=== PATIENT | male | born 1970 | race Caucasian/White ===

== ENCOUNTER 2017-11-12 11:44 | Emergency (ER) | payer BC ==
[2017-11-12] MEDS ORDERED: ONDANSETRON 4 MG/2 ML VIAL IVP STA ×2 (11:56→14:23)
[2017-11-12] MEDS ORDERED: SODIUM CHLORIDE 0.9% 1,000 ML IV STA (11:56)
[2017-11-12] MEDS ORDERED: KETOROLAC 30 MG/ML 1 ML VIAL IVP STA (11:56)
--- NOTE | 2017-11-12 11:59 | ED ---
Abdominal Pain HPI - General Chief Complaint: Abdominal Pain Stated Complaint: rt flank pain Hx Kidney stones Time Seen by Provider: 11/12/17 11:51 Source: patient, RN notes reviewed Mode of arrival: wheelchair Limitations: no limitations - History of Present Illness Initial Comments: This is a 47-year-old male presents emergency Department chief complaint of right flank pain. Patient states symptoms started yesterday worsened overnight. Patient states that he's had a history kidney stones this feels slightly different. Patient denies any dysuria, urinary frequency or hematuria. Patient states she has some chronic constipation issues denies any changes in bowel habits. Patient has fever, chills. He does admit to some nausea no vomiting. Denies any prior abdominal surgeries. Patient has not taken any medications prior arrival to help with symptoms. He does admit to ALLERGIES to erythromycin and naproxen. Patient states he is able to take other anti-inflammatories and has had Toradol in the past. - Related Data Home Medications Medication Instructions Recorded Confirmed ALPRAZolam [Xanax] 0.5 mg PO DAILY PRN 11/12/17 11/12/17 Fish Oil/Dha/Epa [Fish Oil 1,200 2 cap PO DAILY 11/12/17 11/12/17 mg Fish Oil] Montelukast [Singulair] 10 mg PO DAILY 11/12/17 11/12/17 Omeprazole [PriLOSEC] 20 mg PO DAILY 11/12/17 11/12/17 Ondansetron [Zofran] 4 mg PO Q8H PRN 11/12/17 11/12/17 Potassium Citrate [Urocit-K] 15 meq PO BID 11/12/17 11/12/17 Tamsulosin HCl [Flomax] 0.4 mg PO DAILY 11/12/17 11/12/17 Previous Rx's Medication Instructions Recorded HYDROcodone/APAP 7.5-325MG [[place] 1 tab PO Q6HR PRN #20 tab 11/12/17 7.5-325] Ibuprofen [Motrin] 600 mg PO Q8HR PRN #30 tab 11/12/17 Ondansetron Odt [Zofran Odt] 4 mg PO Q8HR PRN #10 tab 11/12/17 Tamsulosin [Flomax] 0.4 mg PO DAILY #7 cap 11/12/17 Allergies Allergy/AdvReac Type Severity Reaction Status Date / Time erythromycin base Allergy Unknown Verified 11/12/17 12:12 naproxen Allergy Unknown Verified 11/12/17 12:12 Review of Systems ROS Statement: Those systems with pertinent positive or pertinent negative responses have been documented in the HPI. ROS Other: All systems not noted in ROS Statement are negative. Past Medical History Additional Past Medical History / Comment(s): enlarged prostate History of Any Multi-Drug Resistant Organisms: None Reported Past Surgical History: No Surgical Hx Reported Past Psychological History: No Psychological Hx Reported Smoking Status: Never smoker Past Alcohol Use History: None Reported Past Drug Use History: None Reported General Exam Limitations: no limitations General appearance: alert, in no apparent distress Head exam: Present: atraumatic, normocephalic, normal inspection ENT exam: Present: normal exam, mucous membranes moist Neck exam: Present: normal inspection, full ROM. Absent: tenderness, meningismus, lymphadenopathy Respiratory exam: Present: normal lung sounds bilaterally. Absent: respiratory distress, wheezes, rales, rhonchi, stridor Cardiovascular Exam: Present: regular rate, normal rhythm, normal heart sounds. Absent: systolic murmur, diastolic murmur, rubs, gallop, clicks GI/Abdominal exam: Present: soft, tenderness (Mild right sided right flank region), normal bowel sounds. Absent: distended, guarding, rebound, rigid Back exam: Present: CVA tenderness (R). Absent: CVA tenderness (L) Skin exam: Present: warm, dry, intact, normal color. Absent: rash Course Vital Signs 11/12/17 11:48 Temperature 98.1 F Pulse Rate 54 L Respiratory 20 Rate Blood Pressure 156/86 O2 Sat by Pulse 100 Oximetry Medical Decision Making - Medical Decision Making 47-year-old male presents emergency Department chief complaint of right flank pain. Patient's found to have a 9 millimeter obstructing stone on the right. There is some fat stranding there is no evidence of infection on lab work or urinalysis. Dr humphrey did discuss case with Dr. guerra or who will set up an appointment for the patient tomorrow he will be given Flomax, pain medication and antibiotic denies medication. Return parameters were discussed. - Lab Data Result diagrams: 11/12/17 12:14 11/12/17 12:14 Lab Results 02/11/12/17 11/12/17 Range/Units 12:14 12:14 13:45 WBC 10.1 (3.8-10.6) k/uL RBC 4.76 (4.30-5.90) m/uL Hgb 15.0 (13.0-17.5) gm/dL Hct 44.1 (39.0-53.0) % MCV 92.7 (80.0-100.0) fL MCH 31.6 (25.0-35.0) pg MCHC 34.1 (31.0-37.0) g/dL RDW 12.4 (11.5-15.5) % Plt Count 120 L (150-450) k/uL Neutrophils % 73 % Lymphocytes % 20 % Monocytes % 6 % Eosinophils % 0 % Basophils % 0 % Neutrophils # 7.4 (1.3-7.7) k/uL Lymphocytes # 2.0 (1.0-4.8) k/uL Monocytes # 0.6 (0-1.0) k/uL Eosinophils # 0.1 (0-0.7) k/uL Basophils # 0.0 (0-0.2) k/uL Sodium 140 (137-145) mmol/L Potassium 4.3 (3.5-5.1) mmol/L Chloride 106 (98-107) mmol/L Carbon Dioxide 20 L (22-30) mmol/L Anion Gap 14 mmol/L BUN 22 H (9-20) mg/dL Creatinine 0.91 (0.66-1.25) mg/dL Est GFR (MDRD) Af Amer >60 (>60 ml/min/1.73 sqM) Est GFR (MDRD) Non-Af >60 (>60 ml/min/1.73 sqM) Glucose 125 H (74-99) mg/dL Calcium 10.3 H (8.4-10.2) mg/dL Total Bilirubin 0.9 (0.2-1.3) mg/dL AST 41 (17-59) U/L ALT 24 (21-72) U/L Alkaline Phosphatase 78 (38-126) U/L Total Protein 7.5 (6.3-8.2) g/dL Albumin 4.9 (3.5-5.0) g/dL Amylase 80 (30-110) U/L Lipase 152 (23-300) U/L Urine Color Yellow Urine Appearance Clear (Clear) Urine pH 8.0 (5.0-8.0) Ur Specific [place] 1.011 (1.001-1.035) Urine Protein 1+ H (Negative) Urine Glucose (UA) Negative (Negative) Urine Ketones 1+ H (Negative) Urine Blood Moderate H (Negative) Urine Nitrite Negative (Negative) Urine Bilirubin Negative (Negative) Urine Urobilinogen <2.0 (<2.0) mg/dL Ur Leukocyte Esterase Negative (Negative) Urine RBC >182 H (0-5) /hpf Urine WBC 4 (0-5) /hpf Urine Mucus Rare H (None) /hpf Disposition Clinical Impression: Ureteral calculi, Hydronephrosis with renal and ureteral calculous obstruction Disposition: HOME SELF-CARE Condition: Stable Instructions: Kidney Stones (ED) Additional Instructions: Please follow-up urologist tomorrow at scheduled appointment. Please return to the Emergency Department if symptoms worsen or any other concerns. Prescriptions: HYDROcodone/APAP 7.5-325MG [[place] 7.5-325] 1 tab PO Q6HR PRN #20 tab PRN Reason: Pain Ibuprofen [Motrin] 600 mg PO Q8HR PRN #30 tab PRN Reason: Pain Ondansetron Odt [Zofran Odt] 4 mg PO Q8HR PRN #10 tab PRN Reason: Nausea Tamsulosin [Flomax] 0.4 mg PO DAILY #7 cap Referrals: None,Stated [REFERRING] - 1-2 days Lázaro Aly MD [STAFF PHYSICIAN] - 1-2 days Time of Disposition: 15:19
[2017-11-12 12:26] LABS: Basophils % (A) 0 %; Eosinophils # (A) 0.1 k/uL (0-0.7); Eosinophils % (A) 0 %; HCT 44.1 % (39.0-53.0); Lymphocytes % (A) 20 %; MCH 31.6 pg (25.0-35.0); MCHC 34.1 g/dL (31.0-37.0); MCV 92.7 fL (80.0-100.0); Mean Platelet Volume 10.2; Monocytes # (A) 0.6 k/uL (0-1.0); Monocytes % (A) 6 %; Neutrophils # (A) 7.4 k/uL (1.3-7.7); Neutrophils % (A) 73 %; Platelet Count 120 k/uL (150-450); RBC 4.76 m/uL (4.30-5.90); RDW 12.4 % (11.5-15.5); WBC 10.1 k/uL (3.8-10.6)
[2017-11-12 12:43] LABS: ALT 24 U/L (21-72); AST 41 U/L (17-59); Albumin 4.9 g/dL (3.5-5.0); Alkaline Phosphatase 78 U/L (38-126); Amylase 80 U/L (30-110); Anion Gap 14 mmol/L; Blood Urea Nitrogen 22 mg/dL (9-20); Calcium 10.3 mg/dL (8.4-10.2); Carbon Dioxide 20 mmol/L (22-30); Chloride 106 mmol/L (98-107); Glucose 125 mg/dL (74-99); Lipase 152 U/L (23-300); Sodium 140 mmol/L (137-145); Total Bilirubin 0.9 mg/dL (0.2-1.3); Total Protein 7.5 g/dL (6.3-8.2)
[2017-11-12 12:47] LABS: Potassium 4.3 mmol/L (3.5-5.1)
--- NOTE | 2017-11-12 13:22 | XR ---
Abdomen HISTORY: Pain Frontal view of the abdomen on 2 images Lung bases are clear. There is no bowel obstruction or pneumoperitoneum. Bone mineralization is maint ained. Calcification superimposed over the lower pole left kidney is suspected measuring approximatel y 4 mm. Overlying bowel gas may obscure detail. Questionable calcification at the level of the right sacral ala measuring 7 mm. IMPRESSION: Difficult to exclude nephrolithiasis. There may be a distal right ureteral calculus.
[2017-11-12 14:17] LABS: Appearance,Urine Clear (Clear); Bilirubin,Urine Negative (Negative); Blood,Urine Moderate (Negative); Color,Urine Yellow; Glucose,Urine (UA) Negative (Negative); Ketones,Urine 1+ (Negative); Leukocyte Esterase,Urine Negative (Negative); Mucus,Urine Rare /hpf; Protein,Urine 1+ (Negative); RBC,Urine >182 /hpf (0-5); Specific Gravity,Urine 1.011 (1.001-1.035); Urobilinogen,Urine <2.0 mg/dL (<2.0); WBC,Urine 4 /hpf (0-5)
[2017-11-12] MEDS ORDERED: MORPHINE SULFATE 4 MG/ML SYRINGE IVP STA ×2 (14:23→15:24)
--- NOTE | 2017-11-12 14:53 | CT ---
EXAMINATION TYPE: CT abdomen pelvis wo con DATE OF EXAM: 11/12/2017 COMPARISON: NONE HISTORY: Right flank pain x 2 days. Painful urination and hematuria. CT DLP: 404.3 mGycm Automated exposure control for dose reduction was used. TECHNIQUE: Helical acquisition of images was performed from the lung bases through the pelvis. FINDINGS: LUNG BASES: No significant abnormality is appreciated. LIVER/GB: Liver is unremarkable. No radiopaque calculi are seen within the gallbladder. PANCREAS: Unenhanced pancreas is of normal morphology without ductal dilatation. SPLEEN: No splenomegaly. ADRENALS: No enlargement or nodularity. KIDNEYS: Left kidney demonstrates a 2 mm mid pole nonobstructing calculus and 4 mm lower pole nonobst ructing calculus. There is mild right-sided perinephric fat stranding, moderate hydroureteronephrosis, and periureteral fat stranding secondary to an obstructing 9 mm calculus at the right ureterovesicular junction. Maik tional punctate 2 mm right midpole renal calculus is seen. Urinary bladder is partially decompressed and suboptimally evaluated. FREE AIR: No free air is visualized ADENOPATHY: No greater than 1 cm short axis lymph nodes are seen within the abdomen or pelvis. REPRODUCTIVE ORGANS: Prostate gland is mildly heterogenous and nonenlarged. OSSEOUS STRUCTURES: Minimal degenerative changes of the visualized thoracolumbar spine are noted. BOWEL: Few sigmoid diverticula are noted without pericolonic fat stranding. Appendix is air-filled a nd within normal limits. No evidence of dilated bowel to suggest obstruction. IMPRESSION: 9 MM CALCULUS AT THE RIGHT URETEROVESICULAR JUNCTION CREATING MODERATE RIGHT HYDROURETERONEPHROSIS, R IGHT PERINEPHRIC FAT STRANDING, AND RIGHT PERIURETERAL FAT STRANDING. CORRELATE WITH URINALYSIS TO EX CLUDE SUPERIMPOSED INFECTION.
[2017-11-12 15:33] VITALS: BP 123/84; PULSE 52; RESP 16; TEMP 97.9
== END 2017-11-12 15:45 | disposition home or self-care (01) ==
LOC: EC 11:44
DX: N13.2 Hydronephrosis with renal and ureteral calculous obstruction (principal); K59.09 Other constipation; N40.0 Benign prostatic hyperplasia without lower urinary tract symptoms; Z79.899 Other long term (current) drug therapy; Z88.1 Allergy status to other antibiotic agents; Z88.6 Allergy status to analgesic agent
CPT/HCPCS: 36415; 80053; 82150; 83690; 85025; 81001; 74018; 74176; 99284; 96374; 96375 ×2; 96376 ×2; 96361; J2270; J2405; J1885

== ENCOUNTER 2019-03-18 15:19 | Emergency (ER) | payer BC ==
[2019-03-18 15:25] VITALS: BP 111/73; PULSE 60; RESP 16; TEMP 98.8
--- NOTE | 2019-03-18 15:53 | ED ---
Upper Extremity HPI - General Chief Complaint: Extremity Injury, Upper Stated Complaint: Arm pain Time Seen by Provider: 03/18/19 15:32 Source: patient Mode of arrival: ambulatory Limitations: no limitations - History of Present Illness Initial Comments: Patient is a 40-year-old male presents emergency Department with complaints of pain in his left arm 4 days. Patient states he was trying to move a plow and was using a pulling motion with his left arm when he felt a sharp pain in his left elbow area. Patient states he's been unable to extend his elbow since that injury and also noticed some bruising along the left elbow into the left forearm. Patient denies previous injuries to the left arm. Patient states he is right-hand dominant. No other complaints at this time. - Related Data Home Medications Medication Instructions Recorded Confirmed ALPRAZolam [Xanax] 0.5 mg PO DAILY 11/12/17 03/18/19 Omeprazole [PriLOSEC] 20 mg PO DAILY 11/12/17 03/18/19 Potassium Citrate [Urocit-K] 15 meq PO BID 11/12/17 03/18/19 Allergies Allergy/AdvReac Type Severity Reaction Status Date / Time erythromycin base Allergy Unknown Verified 03/18/19 15:51 naproxen Allergy Unknown Verified 03/18/19 15:51 Review of Systems ROS Statement: Those systems with pertinent positive or pertinent negative responses have been documented in the HPI. ROS Other: All systems not noted in ROS Statement are negative. Past Medical History Additional Past Medical History / Comment(s): enlarged prostate History of Any Multi-Drug Resistant Organisms: None Reported Past Surgical History: No Surgical Hx Reported Past Psychological History: No Psychological Hx Reported Smoking Status: Never smoker Past Alcohol Use History: None Reported Past Drug Use History: None Reported General Exam - General Exam Comments Initial Comments: GENERAL: Well-appearing, well-nourished and in no acute distress. HEAD: Atraumatic, normocephalic. EYES: Pupils equal round and reactive to light, extraocular movements intact, sclera anicteric, conjunctiva are normal. ENT: TMs normal, nares patent, oropharynx clear without exudates. Moist mucous membranes. NECK: Normal range of motion, supple without lymphadenopathy or JVD. LUNGS: Breath sounds clear to auscultation bilaterally and equal. No wheezes rales or rhonchi. HEART: Regular rate and rhythm without murmurs, rubs or gallops. ABDOMEN: Soft, nontender, normoactive bowel sounds. No guarding, no rebound. No masses appreciated. : Deferred EXTREMITIES: Pain with palpation to the left distal biceps, medial epicondyles and into brachial radialis. Patient has full elbow flexion and limited elbow extension secondary to pain. Patient has bruising along the medial elbow and the medial forearm. Neurovascular intact. Pain with resisted elbow flexion. NEUROLOGICAL: Cranial nerves II through XII grossly intact. Normal speech, normal gait. PSYCH: Normal mood, normal affect. SKIN: Warm, Dry, normal turgor, no rashes or lesions noted. Limitations: no limitations Course Vital Signs 03/18/19 03/18/19 15:22 15:25 Temperature 98.8 F Pulse Rate 60 Respiratory 16 Rate Blood Pressure 111/73 O2 Sat by Pulse 97 Oximetry Medical Decision Making - Medical Decision Making Patient is a 40-year-old male who presents to [facility] with complaints of left elbow/arm pain 4 days after he was trying to pull up following his cried just felt a sharp pain. On exam patient has pain in the distal bicep and brachial radialis area. Patient also has bruising of the area. X-ray of the left elbow and humerus show no acute fractures or avulsions. There is concern for a bicep tendon/muscle tear. Patient will be placed in a sling and will follow up with orthopedics on Friday. Patient is a in agreement with this plan. Return parameters were discussed. Case was discussed with Dr. Mcneal. Disposition Clinical Impression: Biceps muscle tear, Biceps rupture, distal Disposition: HOME SELF-CARE Condition: Stable Instructions (If sedation given, give patient instructions): Tendon Rupture (ED) Additional Instructions: Please return to the Emergency Department if symptoms worsen or any other concerns. Follow-up with orthopedics on Friday. Is patient prescribed a controlled substance at d/c from ED?: No Referrals: Nonstaff,Physician [REFERRING] - 1-2 days Harlan Monroe DO [Doctor of Osteopathic Medicine] - 1-2 days
--- NOTE | 2019-03-18 16:16 | XR ---
EXAMINATION TYPE: XR humerus LT DATE OF EXAM: 03/18/2019 COMPARISON: NONE HISTORY: Pain TECHNIQUE: 2 views FINDINGS: There is some spurring at the glenohumeral joint. Elbow joint appears intact. I see no frac ture nor dislocation. 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 No fracture seen.
--- NOTE | 2019-03-18 16:17 | XR ---
EXAMINATION TYPE: XR elbow complete LT DATE OF EXAM: 03/18/2019 COMPARISON: NONE HISTORY: Arm pain TECHNIQUE: 3 views FINDINGS: There is some spurring on the olecranon process of the ulna. There is spurring on the coron oid process of the ulna. I see no fracture nor dislocation. There is no sign of elbow joint effusion. Joint spaces are fairly normal. IMPRESSION: Degenerative hypertrophic spurring. No fracture.
== END 2019-03-18 16:36 | disposition home or self-care (01) ==
LOC: EC 15:19
DX: S46.212A Strain of muscle, fascia and tendon of other parts of biceps, left arm, initial encounter (principal); S50.12XA Contusion of left forearm, initial encounter; Z79.899 Other long term (current) drug therapy; Z88.1 Allergy status to other antibiotic agents; Z88.6 Allergy status to analgesic agent; X50.9XXA Other and unspecified overexertion or strenuous movements or postures, initial encounter; Y93.89 Activity, other specified
CPT/HCPCS: 99283

== ENCOUNTER 2021-02-05 07:30 | Emergency (ER) | payer BC ==
[2021-02-05 07:41] VITALS: RESP 18
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
--- NOTE | 2021-02-05 08:11 | XR ---
EXAMINATION TYPE: XR hand complete RT DATE OF EXAM: 02/05/2021 CLINICAL HISTORY: Injury with pain worse in the finger. TECHNIQUE: Frontal, lateral and oblique images of the right hand are obtained. COMPARISON: None. FINDINGS: There is no acute fracture/dislocation evident in the right hand. Mild to moderate narrowi ng throughout the PIP and DIP joints of the phalanges. The overlying soft tissue appears unremarkabl e. IMPRESSION: There is no acute fracture or dislocation in the right hand.
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
[2021-02-05] MEDS ORDERED: BACITRACIN OINT 1 EACH PACKET TOPICAL ONE (08:58)
[2021-02-05 09:00] VITALS: BP 113/82; PULSE 56; TEMP 97.6
== END 2021-02-05 09:00 | disposition home or self-care (01) ==
LOC: EC 07:30
DX: S06.0X0A Concussion without loss of consciousness, initial encounter (principal); S05.12XA Contusion of eyeball and orbital tissues, left eye, initial encounter; F17.200 Nicotine dependence, unspecified, uncomplicated; V19.9XXA Pedal cyclist (driver) (passenger) injured in unspecified traffic accident, initial encounter
CPT/HCPCS: 70450; 70486; 72125; 99284

== ENCOUNTER 2022-04-16 20:55 | Emergency (ER) | payer BC ==
[2022-04-16 21:07] VITALS: RESP 18; TEMP 97.3
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
[2022-04-16] MEDS ORDERED: MORPHINE SULFATE 4 MG/ML SYRINGE IV STA (22:01)
[2022-04-16 22:17] LABS: Basophils % (A) 0 %; Eosinophils # (A) 0.1 k/uL (0-0.7); Eosinophils % (A) 2 %; HCT 41.7 % (39.0-53.0); HGB 14.3 gm/dL (13.0-17.5); Lymphocytes % (A) 31 %; MCH 33.8 pg (25.0-35.0); MCHC 34.4 g/dL (31.0-37.0); MCV 98.4 fL (80.0-100.0); Monocytes # (A) 0.3 k/uL (0-1.0); Monocytes % (A) 5 %; Neutrophils # (A) 3.6 k/uL (1.3-7.7); Neutrophils % (A) 58 %; Platelet Count 156 k/uL (150-450); RBC 4.24 m/uL (4.30-5.90); RDW 12.5 % (11.5-15.5); WBC 6.3 k/uL (3.8-10.6)
[2022-04-16 22:26] LABS: ALT 18 U/L (4-49); AST 25 U/L (17-59); African American GFR (CKD) >90 (>60 ml/min/1.73 sqM); Alkaline Phosphatase 73 U/L (38-126); Anion Gap 3 mmol/L; Blood Urea Nitrogen 15 mg/dL (9-20); Calcium 9.1 mg/dL (8.4-10.2); Carbon Dioxide 25 mmol/L (22-30); Chloride 108 mmol/L (98-107); Glucose 103 mg/dL (74-99); Non-African American GFR(CKD) >90 (>60 ml/min/1.73 sqM); Potassium 4.1 mmol/L (3.5-5.1); Sodium 136 mmol/L (137-145); Total Bilirubin 0.3 mg/dL (0.2-1.3); Total Protein 5.9 g/dL (6.3-8.2)
--- NOTE | 2022-04-16 22:43 | CT ---
EXAMINATION TYPE: CT abdomen pelvis w con DATE OF EXAM: 04/16/2022 COMPARISON: 11/12/2017 HISTORY: pain CT DLP: 1148.6 mGycm Automated exposure control for dose reduction was used. CONTRAST: Performed with IV Contrast, patient injected with 100 mL of Isovue 300. There are some mild atelectasis at the posterior lung bases. Heart size is normal. No pericardial eff usion. There is small right pleural effusion. Liver and spleen are intact. Stomach is intact. There is no evidence of pancreatic mass. Gallbladder appears normal. The bile ducts are not dilated. There is no adrenal mass. Kidneys show satisfactory contrast opacification. There is no hydronephrosi s. There is 4 mm calculus lower pole left kidney. There is 2 mm calculus interpolar left kidney. Maria Del Rosario yed images show normal renal excretion. The ureters are not dilated. There is no retroperitoneal miko opathy. The bladder distends smoothly. No inguinal hernia. No free fluid in the pelvis. No pelvic mas s. There are some sigmoid diverticula. No diverticulitis. Appendix is posterior and appears normal. There is no mesenteric edema. There is no ascites or free air. No bowel obstruction. The lumbar vertebrae have normal alignment. There is narrowing at L5-S1 disc space with spurring. No compression fracture. The bony pelvis is intact. Hip joints are intact. Impression There is some mild atelectasis at the lung bases and small right pleural effusion which are new jhonathan red to old exam. There is a small nonobstructing left renal calculus without change. There is clearing of the obstruct ing calculus distal right ureter compared to old exam. Normal appendix. No acute abnormality in the abdomen and pelvis. No evidence of traumatic injury in t he abdomen pelvis.
[2022-04-17 00:08] VITALS: BP 119/81; PULSE 71
== END 2022-04-17 00:08 | disposition home or self-care (01) ==
LOC: EC 20:55
DX: S29.9XXA Unspecified injury of thorax, initial encounter (principal); J90 Pleural effusion, not elsewhere classified; F17.200 Nicotine dependence, unspecified, uncomplicated; Z88.1 Allergy status to other antibiotic agents; V89.2XXA Person injured in unspecified motor-vehicle accident, traffic, initial encounter
CPT/HCPCS: 93005; 80053; 84484; 85025; 74177; 99284; 96374; J2270; Q9967

== ENCOUNTER 2025-03-23 17:02 | Emergency (ER) | payer BC ==
[2025-03-23 17:56] LABS: Bilirubin,Urine Negative (Negative); Blood,Urine Large (Negative); Budding Yeast,Urine Occasional /hpf; Color,Urine Light Yellow; Glucose,Urine (UA) Negative (Negative); Ketones,Urine 1+ (Negative); Leukocyte Esterase,Urine Negative (Negative); Mucus,Urine Rare /hpf; Nitrite,Urine Negative (Negative); PH, Urine 6.0 (5.0-8.0); Protein,Urine 1+ (Negative); RBC,Urine >182 /hpf (0-5); Specific Gravity,Urine 1.027 (1.001-1.035); Urobilinogen,Urine <2.0 mg/dL (<2.0); WBC,Urine 5 /hpf (0-5)
[2025-03-23 18:37] LABS: Basophils # (A) 0.02 10*3/uL (0.00-0.10); Basophils % (A) 0.2 %; Eosinophils # (A) 0.08 10*3/uL (0.04-0.35); Eosinophils % (A) 0.7 %; HCT 41.9 % (39.6-50.0); HGB 15.1 g/dL (13.0-17.0); Lymphocytes # (A) 2.30 10*3/uL (0.90-5.00); Lymphocytes % (A) 20.5 %; MCH 33.9 pg (27.0-32.0); MCHC 36.0 g/dL (32.0-37.0); MCV 93.9 fL (80.0-97.0); Monocytes # (A) 0.92 10*3/uL (0.20-1.00); Monocytes % (A) 8.2 %; Neutrophils # (A) 7.82 10*3/uL (1.80-7.70); Neutrophils % (A) 69.9 %; Platelet Count 162 10*3/uL (140-440); RBC 4.46 10*6/uL (4.40-5.60); RDW 12.0 % (11.5-14.5); WBC 11.20 10*3/uL (4.50-10.00)
[2025-03-23 18:40] VITALS: TEMP 98.4
--- NOTE | 2025-03-23 18:46 | ED ---
General Adult HPI - General Chief complaint: Abdominal Pain Stated complaint: abdominal pain Time Seen by Provider: 03/23/25 17:18 Source: patient, RN notes reviewed Mode of arrival: ambulatory Limitations: no limitations - History of Present Illness Initial comments: 54-year-old male presenting to the emergency room with complaints of left flank pain with ration to the right of the abdomen. Patient states that Friday through Friday evening that he was having back pain however this morning the pain worsened and radiates into the front his abdomen. He states that it feels similar to when he had a kidney stone in the past. He states that he has had mild dysuria over the past day. He endorses he had nausea and vomiting with the pain. He denies hematuria, fevers, chills. Denies previous surgeries due to kidney stones. - Related Data Home Medications Medication Instructions Recorded Confirmed ALPRAZolam [Xanax] 0.5 mg PO DAILY 11/12/17 04/16/22 Omeprazole [PriLOSEC] 20 mg PO DAILY 11/12/17 04/16/22 Potassium Citrate [Urocit-K] 15 meq PO DAILY 11/12/17 04/16/22 Montelukast Sodium [Singulair] 10 mg PO DAILY 04/16/22 04/16/22 Tamsulosin HCl [Flomax] 0.4 mg PO DAILY 04/16/22 04/16/22 Previous Rx's Medication Instructions Recorded HYDROcodone/APAP 5-325MG [[place] 1 tab PO Q4HR PRN 3 Days #18 tab 04/16/22 5-325] HYDROcodone/APAP 7.5-325MG [[place] 1 tab PO Q6HR PRN 3 Days #12 tab 03/23/25 7.5-325] Ondansetron Odt [Zofran Odt] 4 mg PO Q8HR PRN #10 tab 03/23/25 Allergies Allergy/AdvReac Type Severity Reaction Status Date / Time erythromycin base Allergy Unknown Verified 04/16/22 23:01 naproxen Allergy Unknown Verified 04/16/22 23:01 Review of Systems ROS Statement: Those systems with pertinent positive or pertinent negative responses have been documented in the HPI. ROS Other: All systems not noted in ROS Statement are negative. Past Medical History Additional Past Medical History / Comment(s): enlarged prostate. kidney stones History of Any Multi-Drug Resistant Organisms: None Reported Past Surgical History: No Surgical Hx Reported Additional Past Surgical History / Comment(s): Right bicep repair Past Psychological History: No Psychological Hx Reported Smoking Status: Current every day smoker Past Alcohol Use History: Occasional Past Drug Use History: Marijuana General Exam Limitations: no limitations Neck exam: Present: normal inspection. Absent: tenderness, meningismus, lymphadenopathy Respiratory exam: Present: normal lung sounds bilaterally. Absent: respiratory distress, wheezes, rales, rhonchi, stridor Cardiovascular Exam: Present: regular rate, normal rhythm, normal heart sounds. Absent: systolic murmur, diastolic murmur, rubs, gallop, clicks GI/Abdominal exam: Present: soft, tenderness (left lower), normal bowel sounds. Absent: distended, guarding, rebound, rigid Extremities exam: Present: normal inspection, full ROM, normal capillary refill. Absent: tenderness, pedal edema, joint swelling, calf tenderness Back exam: Present: normal inspection, CVA tenderness (L). Absent: CVA tenderness (R) Course Vital Signs 03/23/25 03/23/25 03/23/25 17:25 18:38 20:25 Temperature 98.5 F 98.4 F 98.4 F Pulse Rate 64 85 88 Respiratory 16 20 19 Rate Blood Pressure 150/91 109/86 134/90 O2 Sat by Pulse 98 99 98 Oximetry Medical Decision Making - Medical Decision Making Was pt. sent in by a medical professional or institution ([facility] Mcnally, DELI WORKER, urgent care, hospital, or custodial...) When possible be specific @ -No Did you speak to anyone other than the patient for history (EMS, parent, family, police, friend...)? What history was obtained from this source @ -No Did you review nursing and triage notes (agree or disagree)? Why? @ -I reviewed and agree with nursing and triage notes Were old charts reviewed (outside hosp., previous admission, EMS record, old EKG, old radiological studies, urgent care reports/EKG's, custodial records)? Report findings @ -No old charts were reviewed Differential Diagnosis (chest pain, altered mental status, abdominal pain women, abdominal pain men, vaginal bleeding, weakness, fever, dyspnea, syncope, headache, dizziness, GI bleed, back pain, seizure, CVA, palpatations, mental health, musculoskeletal)? @ -Differential Abdominal Pain Men: Appendicitis, cholecystitis, diverticulosis, ischemic bowel, pancreatitis, hepatitis, UTI, gastroenteritis, AAA, incarcerated hernia, bowel obstruction, constipation, inflammatory bowel, hepatitis, peptic ulcer disease, splenic infarction, perforated viscus, testicular torsion, this is not meant to be an all-inclusive list EKG interpreted by me (3pts min.). @ -None X-rays interpreted by me (1pt min.). @ -None done CT interpreted by me (1pt min.). @ -CT imaging of the abdomen and pelvis without IV contrast reveals a mild left hydronephrosis secondary to an obstructing 5 mm calculus at the UVJ with additional nonobstructing left renal calculi U/S interpreted by me (1pt. min.). @ -None done What testing was considered but not performed or refused? (CT, X-rays, U/S, l abs)? Why? @ -None What meds were considered but not given or refused? Why? @ -None Did you discuss the management of the patient with other professionals (professionals i.e. , PA, DELI WORKER, lab, RT, psych nurse, community mental health social worker, clinical courier, teacher, unclaimed property officer, pillowcase maker)? Give summary @ -No Was smoking cessation discussed for >3mins.? @ -No Was critical care preformed (if so, how long)? @ -No Were there social determinants of health that impacted care today? How? (Homelessness, low income, unemployed, alcoholism, drug addiction, transportation, low edu. Level, literacy, decrease access to med. care, senior living, rehab)? @ -No Was there de-escalation of care discussed even if they declined (Discuss DNR or withdrawal of care, Hospice)? DNR status @ -No What co-morbidities impacted this encounter? (DM, HTN, Smoking, COPD, CAD, Cancer, CVA, ARF, Chemo, Hep., AIDS, mental health diagnosis, sleep apnea, morbid obesity)? @ -None Was patient admitted / discharged? Hospital course, mention meds given and route, prescriptions, significant lab abnormalities, going to OR and other pertinent info. @ -Discharge. 54-year-old male presenting to the ER with complaints of left flank pain with ration to the front of the abdomen. Patient is provided with Dilaudid, fluids and Zofran due to CVA tenderness on examination patient is in mild distress due to pain. Urine reveals blood with no signs of infection. CBC and CMP is unremarkable. CT reveals a 5 mm stone with a left hydronephrosis at the UVJ. Patient provided with starter pack of Tylenol 3 and Zofran addition outpatient prescription for [place] and Zofran. Patient states that he takes Flomax daily. Return parameters discussed. Case discussed with my attending Dr. Ma. Undiagnosed new problem with uncertain prognosis? @ -No Drug Therapy requiring intensive monitoring for toxicity (Heparin, Nitro, Insulin, Cardizem)? @ -No Were any procedures done? @ -No Diagnosis/symptom? @ -kidney stone Acute, or Chronic, or Acute on Chronic? @ -Acute Uncomplicated (without systemic symptoms) or Complicated (systemic symptoms)? @ -Uncomplicated Side effects of treatment? @ -No Exacerbation, Progression, or Severe Exacerbation? @ -No Poses a threat to life or bodily function? How? (Chest pain, [place], SD, pneumonia, PE, COPD, DKA, ARF, appy, cholecystitis, CVA, Diverticulitis, Homicidal, Suicidal, threat to staff... and all critical care pts) @ -No - Lab Data Result diagrams: 03/23/25 18:29 03/23/25 18:29 Lab Results 03/23/25 03/23/25 03/23/25 Range/Units 17:29 18:29 18:29 WBC 11.20 H (4.50-10.00) 10*3/uL RBC 4.46 (4.40-5.60) 10*6/uL Hgb 15.1 (13.0-17.0) g/dL Hct 41.9 (39.6-50.0) % MCV 93.9 (80.0-97.0) fL MCH 33.9 H (27.0-32.0) pg MCHC 36.0 (32.0-37.0) g/dL Plt Count 162 (140-440) 10*3/uL MPV 10.5 (9.5-12.2) fL Immature Gran % (Auto) 0.5 % Neutrophils % 69.9 % Lymphocytes % 20.5 % Monocytes % 8.2 % Eosinophils % 0.7 % Basophils % 0.2 % Immature Gran # 0.06 H (0.00-0.04) 10*3/uL Neutrophils # 7.82 H (1.80-7.70) 10*3/uL Lymphocytes # 2.30 (0.90-5.00) 10*3/uL Monocytes # 0.92 (0.20-1.00) 10*3/uL Eosinophils # 0.08 (0.04-0.35) 10*3/uL Basophils # 0.02 (0.00-0.10) 10*3/uL Sodium 137 (137-145) mmol/L Potassium 4.3 (3.5-5.1) mmol/L Chloride 104 (98-107) mmol/L Carbon Dioxide 20 L (22-30) mmol/L Anion Gap 13 mmol/L BUN 26 H (9-20) mg/dL Creatinine 1.05 (0.66-1.25) mg/dL Est GFR (CKD-EPI)AfAm >90 (>60 ml/min/1.73 sqM) Est GFR (CKD-EPI)NonAf 81 (>60 ml/min/1.73 sqM) Glucose 91 (74-99) mg/dL Calcium 10.3 H (8.4-10.2) mg/dL Total Bilirubin 1.1 (0.2-1.3) mg/dL AST 40 (17-59) U/L ALT 40 (4-49) U/L Alkaline Phosphatase 76 (38-126) U/L Total Protein 7.1 (6.3-8.2) g/dL Albumin 4.9 (3.5-5.0) g/dL Urine Color Light Yellow Urine Appearance Clear (Clear) Urine pH 6.0 (5.0-8.0) Ur Specific [place] 1.027 (1.001-1.035) Urine Protein 1+ H (Negative) Urine Glucose (UA) Negative (Negative) Urine Ketones 1+ H (Negative) Urine Blood Large H (Negative) Urine Nitrite Negative (Negative) Urine Bilirubin Negative (Negative) Urine Urobilinogen <2.0 (<2.0) mg/dL Ur Leukocyte Esterase Negative (Negative) Urine RBC >182 H (0-5) /hpf Urine WBC 5 (0-5) /hpf Urine Mucus Rare H (None) /hpf Urine Yeast (Budding) Occasional H (None) /hpf Disposition Clinical Impression: Kidney stone on left side Disposition: HOME SELF-CARE Condition: Good Instructions (If sedation given, give patient instructions): Kidney Stones (ED) Additional Instructions: Please return to the Emergency Department if symptoms worsen or any other concerns. Prescriptions: HYDROcodone/APAP 7.5-325MG [[place] 7.5-325] 1 tab PO Q6HR PRN 3 Days #12 tab PRN Reason: Severe Pain (Scale 7 To 10) Ondansetron Odt [Zofran Odt] 4 mg PO Q8HR PRN #10 tab PRN Reason: Nausea Is patient prescribed a controlled substance at d/c from ED?: Yes When asked, does pt state using other controlled substances?: No If prescribed controlled substance>3 days was MAPS reviewed?: Prescribed <3 Days If Rx opioid, was Start Talking consent form obtained?: Yes Referrals: Manfred Lopez DO [Primary Care Provider] - 1-2 days Time of Disposition: 19:51
[2025-03-23] MEDS: ONDANSETRON 4 MG/2 ML VIAL IVP STA (18:50)
[2025-03-23] MEDS: HYDROmorphone 1 MG/ML 1 ML SYRINGE IVP STA (18:50)
[2025-03-23 18:51] LABS: ALT 40 U/L (4-49); AST 40 U/L (17-59); African American GFR (CKD) >90 (>60 ml/min/1.73 sqM); Albumin 4.9 g/dL (3.5-5.0); Alkaline Phosphatase 76 U/L (38-126); Anion Gap 13 mmol/L; Blood Urea Nitrogen 26 mg/dL (9-20); Calcium 10.3 mg/dL (8.4-10.2); Carbon Dioxide 20 mmol/L (22-30); Chloride 104 mmol/L (98-107); Glucose 91 mg/dL (74-99); Non-African American GFR(CKD) 81 (>60 ml/min/1.73 sqM); Potassium 4.3 mmol/L (3.5-5.1); Sodium 137 mmol/L (137-145); Total Protein 7.1 g/dL (6.3-8.2)
[2025-03-23] MEDS: SODIUM CHLORIDE 0.9% 1,000 ML IV ONE (18:51)
--- NOTE | 2025-03-23 18:52 | CT ---
EXAMINATION TYPE: CT abdomen pelvis wo con DATE OF EXAM: 03/23/2025 6:12 PM COMPARISON: CT abdomen pelvis most recent from 04/16/2022. CLINICAL INDICATION: Male, 54 years old with history of left flank opain kidney stone hx; lt flank pa in TECHNIQUE: Axial CT abdomen pelvis wo con;Sagittal and coronal reformats were created on a separate workstation. Contrast used: mL of , (none if empty) Oral contrast used: without Oral Contrast (none if empty) CT DLP: 640.6 mGycm, Automated exposure control for dose reduction was used. FINDINGS: LOWER CHEST: Unremarkable ABDOMEN LIVER: Diffusely hypoattenuating parenchyma. GALLBLADDER AND BILE DUCTS: Unremarkable. PANCREAS: Unremarkable. SPLEEN: Unremarkable. ADRENAL GLANDS: Unremarkable. KIDNEYS AND URETERS: Mild left hydronephrosis secondary obstructing 5 mm calculus at the ureterovesic ular junction. Additional nonobstructing left renal calculi measuring up to 3 mm. No right renal swapnil culi. PELVIS BLADDER: No evidence for wall thickening or mass given limitations of exam. REPRODUCTIVE: Unremarkable. ABDOMEN & PELVIS STOMACH AND BOWEL: No evidence of bowel obstruction. Appendix is normal. PERITONEUM/RETROPERITONEUM: No evidence of pneumoperitoneum or free fluid. VASCULATURE: No evidence of aortic aneurysm. MUSCULOSKELETAL: No acute osseous abnormalities. Mild disc degeneration changes are present throughou t the thoracolumbar spine. LYMPH NODES: No gross evidence for lymphadenopathy. SOFT TISSUE/ABDOMINAL WALL: Unremarkable IMPRESSION: 1. Mild left hydronephrosis secondary obstructing 5 mm calculus at the ureterovesicular junction. A dditional nonobstructing left renal calculi. 2. Colonic diverticulosis. 3. Symmetrically, correlate with serum PSA. [facility], , 03/23/2025 6:50 PM
[2025-03-23] MEDS: ACET/COD 300 MG/30 MG STARTER PACK TAB BTL PO STA (20:14)
[2025-03-23] MEDS: ONDANSETRON 4 MG ODT STARTER PACK 2 TAB BTL PO STA (20:15)
[2025-03-23] MEDS: HYDROmorphone 0.5 MG/0.5 ML SYRINGE IVP STA (20:16)
[2025-03-23 20:26] VITALS: BP 134/90; PULSE 88; RESP 19
== END 2025-03-23 20:26 | disposition home or self-care (01) ==
LOC: EC 17:02
DX: N13.2 Hydronephrosis with renal and ureteral calculous obstruction (principal); F17.200 Nicotine dependence, unspecified, uncomplicated; Z88.1 Allergy status to other antibiotic agents; Z88.6 Allergy status to analgesic agent
CPT/HCPCS: 36415; 80053; 85025; 81001; 74176; 99284; 96374; 96375; 96376; 96361; J2405; J1171 ×2; S0119